=== PATIENT | male | born 1985 | race Caucasian/White ===

== ENCOUNTER 2016-09-18 18:38 | Emergency (ER) | payer OTHER ==
[~2016-09-18 18:38] MED LIST: ALPRAZOLAM; ATORVASTATIN CA10 MG; COZAAR; PERCOCET; PRILOSEC
[2016-09-18 19:02] LABS: BASOPHIL# 0.1 X10e3 (0-0.3); BASOPHIL% 0.7 % (0-2.5); EOSINOPHIL# 0.1 X10e3 (0-0.7); EOSINOPHIL% 0.8 % (0.0-7.0); HEMATOCRIT 47.1 % (38.0-50.0); HEMOGLOBIN 16.3 gm/dL (13.0-16.0); LYMPHOCYTE# 0.6 X10e3 (1.0-3.5); LYMPHOCYTE% 7.3 % (17.0-45.0); MEAN CELL VOLUME 92.8 FL (83-96); MEAN CORPUSCULAR HEMOGLOBIN 32.1 PG (28-34); MEAN CORPUSCULAR HGB CONC 34.6 g/dL (30-36); MONOCYTE# 0.4 X10e3 (0-1.0); MONOCYTE% 5.1 % (3.0-12.0); NEUTROPHIL# 6.5 X10e3 (1.5-7.1); NEUTROPHIL% 86.1 % (40-75); PLATELET COUNT 241 X10e3 (140-420); RED BLOOD COUNT 5.07 X10e (3.90-5.60); RED CELL DISTRIBUTION WIDTH 13.1 % (11.0-15.5); WHITE BLOOD COUNT 7.5 X10e3 (4.0-10.5)
[2016-09-18 19:09] LABS: DIFF IND NO
[2016-09-18 19:15] LABS: ALBUMIN SERUM 4.4 g/dL (3.5-5.0); ALKALINE PHOSPHATASE 54 U/L (32-92); ALT (SGPT) 68 U/L (10-40); AST (SGOT) 42 U/L (10-42); BILIRUBIN, DIRECT 0.1 mg/dL (0.0-0.2); BILIRUBIN,TOTAL 1.1 mg/dL (0.2-2.0); BLOOD UREA NITROGEN 22 mg/dL (9-23); BUN/CREATININE RATIO 18.33; CALCIUM SERUM 8.9 mg/dL (8.4-10.2); CARBON DIOXIDE 26 mmol/L (22-31); CHLORIDE 91 mmol/L (100-111); CREATININE SERUM 1.2 mg/dL (0.6-1.4); GLOM FILT RATE Estimated ABOVE60 mL/min (>60); GLUCOSE FASTING 116 mg/dL (70-110); LIPASE 24 U/L (22-51); PROTEIN TOTAL SERUM 7.9 g/dL (6.0-8.3); SODIUM 131 mmol/L (135-145)
[2016-09-18 19:33] LABS: URINE SOURCE CLEAN CATCH
[2016-09-18 19:37] LABS: MICRO INDICATED? YES; URINE APPEARANCE CLEAR; URINE BILIRUBIN NEG (NEG); URINE BLOOD 1+ (NEG); URINE COLOR YELLOW; URINE GLUCOSE NEG (NORM); URINE KETONE NEG (NEG); URINE LEUKOCYTE ESTERASE NEG (NEG); URINE NITRATE NEG (NEG); URINE PROTEIN NEG (NEG); URINE SPECIFIC GRAVITY 1.015 (1.003-1.035); URINE UROBILINOGEN 0.2 MG/DL (NORM)
[2016-09-18 19:38] LABS: CULTURE INDICATED? NO; URINE BACTERIA NEG (NEG); URINE WBC NEG /[HPF] (0-5)
[2016-09-18 19:39] LABS: URINE SQUAMOUS EPITHELIAL CELL FEW /[HPF]
== END 2016-09-18 19:57 | disposition home or self-care (01) ==
LOC: SED 18:38
PROVIDERS: Physician Assistant
DX: E87.6 Hypokalemia (principal); I10 Essential (primary) hypertension; E78.5 Hyperlipidemia, unspecified; K21.9 Gastro-esophageal reflux disease without esophagitis; F41.9 Anxiety disorder, unspecified; F17.210 Nicotine dependence, cigarettes, uncomplicated
CPT/HCPCS: 36415; 80048; 80076; 81003; 83690; 85025; 96361; 96374; 99284; J2405